=== PATIENT | female | born 1940 | race Caucasian/White ===

== ENCOUNTER 2018-02-09 10:23 | Inpatient (IN) | payer OTHER ==
[~2018-02-09] VITALS: Ht 162.5 cm; Wt 76.4 kg
--- NOTE | ~2018-02-09 | PR ---
[place], [place] PROGRESS NOTE NAME: DAVID DUMONT UNIT #: [id number] ROOM: 422 DOCTOR: JAIR FREEDMAN MD BIRTHDATE: [birth year] DOS: 02/11/2018 REASON FOR VISIT: Elevated cardiac enzymes. HISTORY OF PRESENT ILLNESS: She is alert, oriented. Denies any chest pain or shortness of breath. She appears to be tired, but no acute distress. Denies any PND, orthopnea. Her family is at bedside. REVIEW OF SYSTEMS: Review of the 8 systems negative except as mentioned above. RHYTHM STRIPS: The patient in sinus rhythm. PHYSICAL EXAMINATION: VITAL SIGNS: Blood pressure 113/58, pulse 68, respiratory rate was 16. GENERAL: Alert, comfortable, in no acute distress. HEENT: Pupils are round and equal. No jaundice. Tongue was moist and pharynx clear. NECK: Supple, no distended neck veins, no carotid bruit. CHEST: Symmetrical, nontender. LUNGS: A few scattered rhonchi, but good air entry bilaterally. HEART: Regular rhythm, no S3. Grade 1/6 systolic murmur. ABDOMEN: Benign, nontender. Bowel sounds normal. EXTREMITIES: Showed trace edema. Distal pulses palpable. SKIN: Warm and dry. No cyanosis, no clubbing. RECTAL: Deferred. GENITOURINARY: Deferred. Her medications, allergies and labs reviewed. IMPRESSION: 1. Elevated troponin, possible recent non-ST elevation myocardial infarction. The patient was chest pain free. 2. Urinary tract infection. 3. Chronic obstructive pulmonary disease. 4. Supraventricular ectopy. 5. IVP DYE allergy. RECOMMENDATIONS: 1. She is stable from the cardiac standpoint. Her blood pressure and heart rates are stable. 2. I discussed with her daughter who is at bedside and she wishes conservative medical therapy only, for her mom. 3. Cardiology to sign off and please call us back if needed. [place], [place] PROGRESS NOTE NAME: DAVID DUMONT UNIT #: [id number] ROOM: 422 DOCTOR: JAIR FREEDMAN MD BIRTHDATE: [birth year] JAIR FREEDMAN MD CM:DANILO [id number] JAIR FREEDMAN MD 02/11/18 2329 interface
--- NOTE | ~2018-02-09 | PR ---
[place], [place] PROGRESS NOTE NAME: DAVID DUMONT [facility] #: [id number] UNIT #: [id number] ROOM: 422 DOCTOR: EVELIO PALOMARES MD BIRTHDATE: [birth year] DOS: 02/10/2018 CARDIOLOGY PROGRESS NOTE SUBJECTIVE: The patient was seen today at her bedside on 02/10/2018 with her daughter in attendance. She is a 77-year-old woman who was told that she had a silent heart attack in the past. She denies ever having been admitted to the hospital for a heart attack, however. She presented to the hospital on this occasion because of difficulty passing her urine and an apparent urinary tract infection. Her white count was low at 4400, but her urinalysis was consistent with a urinary tract infection. Blood chemistries did show an elevation in troponin, which began at 0.069, then siri to 1.500, followed by 1.600. Throughout this, the patient has had no chest pain, palpitations or dyspnea. She and her family are anxious to leave the hospital as soon as it is safe to do so and I have requested that no aggressive or invasive diagnostic or therapeutic options be explored. She did have an echocardiogram today that I reviewed. It was a technically challenging study, but overall left ventricular systolic function appeared normal. The ejection fraction was 55% with stage 1 diastolic relaxation abnormalities. No significant valve abnormalities were seen. PHYSICAL EXAMINATION: VITAL SIGNS: Today, her pulse is 75 and regular, blood pressure is 109/58. She is afebrile. NECK: Supple. She has no jugular distention. Carotids are full. LUNGS: Respirations are unlabored. Her chest is clear. HEART: Has a regular rhythm with an S4 gallop, but no S3. ABDOMEN: Soft and normally active. EXTREMITIES: Showed no edema. LABORATORY DATA: Hemoglobin is 11.2 with hematocrit of 35.6. There are 3600 white cells and 148,000 platelets present. Sodium is 139, potassium 3.8, BUN 13, creatinine 0.88. IMPRESSION: 1. Non-ST elevation myocardial infarction. The pattern of troponin elevation and the degree of troponin elevation are consistent with at least a small amount of myocardial injury. Echocardiography; however, shows normal wall motion and overall systolic function. 2. Urinary tract infection with urinary retention. 3. Leukopenia. 4. History of chronic obstructive pulmonary disease. 5. Remote history of "silent" myocardial infarction. 6. History of breast cancer status post right mastectomy. PLAN: The patient and her family request a conservative approach to her management. We will continue aspirin and statins and increase her beta christian therapy. No other workup is planned at this time. [place], [place] PROGRESS NOTE NAME: DAVID DUMONT UNIT #: [id number] ROOM: 422 DOCTOR: EVELIO PALOMARES MD BIRTHDATE: [birth year] I thank the hospitalist physicians for asking our advice regarding her care. EVELIO PALOMARES MD CM:PNTRANS [phone] EVELIO PALOMARES MD 02/11/18 1910 interface
--- NOTE | ~2018-02-09 | CON ---
[place], [place] REPORT OF CONSULTATION NAME: DAVID DUMONT [facility] #: [id number] UNIT #: [id number] ROOM: 422 DOCTOR: JAIR FREEDMAN MD BIRTHDATE: [birth year] DOS: 02/09/2018 CARDIOLOGY CONSULTATION REASON FOR CONSULTATION: Elevated cardiac enzymes. CLINICAL HISTORY: The patient is a 77-year-old patient with no prior history of questionable myocardial infarction, COPD, was brought to the Emergency Room due to her urinary complaints. The patient unable to urinate as well as noted to have some decreased urinary output, hence, she was brought to the Emergency Room. Hence she was found to have slightly elevated cardiac troponin, hence Cardiology was consulted. The patient denied any chest pains, shortness of breath. No fever and chills. No nausea, vomiting, diarrhea. No headaches. No hematuria or dysuria. The medical records indicate that the patient had some myocardial infarction in the past, but per her family, daughter, this was probably 40-50 years ago. REVIEW OF SYSTEMS: The patient denies any chest pain or shortness of breath, no palpitation, no dizziness, no PND or orthopnea, no neurologic symptoms, no musculoskeletal symptoms, no symptoms, no bladder symptoms except inability to urinate. The review of the 10 systems is negative except as mentioned in the history of present complaint. PAST MEDICAL HISTORY: 1. Questionable myocardial infarction 40-50 years ago per family. 2. Chronic obstructive pulmonary disease. 3. Hypothyroidism. 4. History of breast cancer. SURGICAL HISTORY: History of right mastectomy, cholecystectomy, hysterectomy, and thyroidectomy. FAMILY HISTORY: Father diseased, cause is unknown. Mother , cause is unknown. ALLERGIES: THE PATIENT HAS MULTIPLE ALLERGIES INCLUDING IVP DYE, PENICILLIN, SULFA, ASPIRIN, IODINE, AND LINDANE. HOME MEDICATIONS: Reviewed. PHYSICAL EXAMINATION: VITAL SIGNS: Blood pressure 146/70, pulse 90, respiratory 18, weight 76.4 kilos, BMI 28.9. GENERAL: Alert, comfortable, in no acute distress. HEENT: Pupils round, equal. No jaundice. Tongue was moist and pharynx clear. NECK: Supple, no distended neck veins, no carotid bruit. CHEST: Symmetrical, nontender. LUNGS: Few scattered rhonchi. HEART: Slightly irregular. No S3. Grade 1/6 systolic murmur. ABDOMEN: Benign, nontender. Bowel sounds normal. [place], [place] REPORT OF CONSULTATION NAME: DAVID DUMONT UNIT #: [id number] ROOM: 422 DOCTOR: TANO CHACON,JAIR BIRTHDATE: [birth year] EXTREMITIES: Showed no edema. Distal pulses are palpable. SKIN: Warm and dry. No cyanosis, no clubbing. RECTAL: Deferred. GENITOURINARY: Deferred. NEUROLOGIC: The patient is alert, oriented. No focal neurologic deficit. REVIEW OF THE DIAGNOSTIC TESTS: EKG sinus rhythm with nonspecific ST-T changes. Rhythm strip showed supraventricular ectopy, also some multifocal atrial tachycardia with a rate slow 100. Chest x-ray unremarkable. Cardiac troponin was 0.069 and 1.5. Hemoglobin 11.8. Creatinine is 149,000. Potassium 3.6, BUN 18, creatinine 0.96. IMPRESSION: 1. Borderline elevated cardiac troponin, no chest pains, history of non-ST elevation myocardial infarction. 2. Urinary retention. 3. Supraventricular ectopy as well as multifocal atrial tachycardia with heart rate is low 100s. The patient is asymptomatic. 4. Chronic obstructive pulmonary disease. 5. Hypothyroidism. 6. Questionable history of myocardial infarction long time ago. 7. IVP DYE ALLERGY. RECOMMENDATIONS: 1. The patient appears to be asymptomatic. 2. Continue to cycle her cardiac enzymes. 3. Continue her aspirin and start low dose beta blockers and statins, continue her Lovenox. 4. Check 2D echo with LV function and valvular function. 5. Further cardiac workup discussed with the patient as well as her family member, her daughter, who is at bedside. The family is requesting just conservative medical therapy at this time. JAIR FREEDMAN MD CM:CONSTR:REPORT OF CONSULTATION 2323 02/10/18 0718 interface
[~2018-02-09 10:23] MED LIST: CIPROFLOXACIN500 MG PO; CLARITIN10 MG PO; EVISTA60 MG PO; KLOTRIX10 MEQ PO; NYSTATIN OINTME30 GM T; OYSTER CALCIUM1 TA2 PO; PLAVIX75 MG PO; SYNTHROID,LEVO75 MCG PO; VENTOLIN H0.09 MG/AC INH
[2018-02-09 10:24] VITALS: BP 166/78
[2018-02-09 11:14] LABS: BILIRUBIN NEGATIVE (NEGATIVE); BLOOD 3+ (NEGATIVE); CLARITY CLOUDY (CLEAR); COLOR YELLOW (YELLOW); GLUCOSE NEGATIVE (NEGATIVE); KETONE NEGATIVE (NEGATIVE); LEUKO ESTERASE 3+ (NEGATIVE); NITRITE NEGATIVE (NEGATIVE); PH 5.5 (5.0-9.0); UROBILINOGEN 0.2 E.U./dl (0.2-1.0)
[2018-02-09 11:22] LABS: BASO % 0.5 % (0.0-1.0); EOS # 0.1 10*3/uL (0.0-0.4); EOS % 3.2 % (1.0-4.0); HEMATOCRIT 37.4 % (37.0-47.0); HEMOGLOBIN 11.8 g/dl (12.0-16.0); LYMPH # 0.8 10*3/uL (1.3-4.4); LYMPH % 17.7 % (27.0-41.0); MEAN CORPUSCULAR HGB 28.7 pg (27.0-31.0); MEAN CORPUSCULAR HGB CONC 31.6 g/dl (33.0-37.0); MEAN PLATELET VOLUME 9.7 fl (9.6-12.3); MONO # 0.4 10*3/uL (0.1-1.0); MONO % 9.9 % (3.0-9.0); NEUT % 68.5 % (47.0-73.0); PLATELET COUNT AUTOMATED 149 10*3/uL (130-400); RED BLOOD COUNT 4.11 10*6/uL (4.10-5.10); RED CELL DISTRI WIDTH 14.7 % (0-14.5); WHITE BLOOD COUNT 4.4 10*3/uL (4.8-10.8)
[2018-02-09 11:23] LABS: RBC TNTC rbc/hpf (0-2); WBC TNTC wbc/hpf (0-5)
[2018-02-09 11:32] LABS: ACT PARTIAL THROMBO TIME 24.3 SECONDS (20.8-31.5)
[2018-02-09 11:37] VITALS: BP 142/72
[2018-02-09 11:39] LABS: ALBUMIN 3.2 gm/dl (3.1-4.5); ALKALINE PHOSPHATASE 54 U/L (45-117); BUN 18 mg/dl (7-24); CHLORIDE 107 mmol/L (98-107); CREATININE 0.96 mg/dL (0.55-1.02); POTASSIUM 3.6 mmol/L (3.5-5.1); SGOT/AST 24 IU/L (3-35); SGPT/ALT 14 U/L (12-78); SODIUM 138 mmol/L (136-145); TOTAL PROTEIN 8.6 gm/dL (6.4-8.2)
[2018-02-09 11:43] LABS: TROPONIN I 0.069 ng/ml (<0.045)
[2018-02-09 12:27] VITALS: BP 138/78
[2018-02-09] MEDS ORDERED: ASPIRIN CHEWABL81 MG PO (12:47)
[2018-02-09] MEDS ORDERED: FISH OIL 1,0001 EAC4 PO (12:49)
[2018-02-09] MEDS ORDERED: B12100 MC1 PO (12:49)
[2018-02-09 13:20] VITALS: BP 146/76
[2018-02-09 16:00] VITALS: BP 130/75
[2018-02-09 20:00] VITALS: BP 127/65
[2018-02-10] VITALS: BP 130/67
[2018-02-10 07:00] LABS: BASO % 0.6 % (0.0-1.0); EOS # 0.1 10*3/uL (0.0-0.4); EOS % 3.3 % (1.0-4.0); HEMATOCRIT 35.6 % (37.0-47.0); HEMOGLOBIN 11.2 g/dl (12.0-16.0); LYMPH # 1.1 10*3/uL (1.3-4.4); LYMPH % 29.5 % (27.0-41.0); MEAN CELL VOLUME 90.4 fl (81.0-99.0); MEAN CORPUSCULAR HGB 28.4 pg (27.0-31.0); MEAN CORPUSCULAR HGB CONC 31.5 g/dl (33.0-37.0); MEAN PLATELET VOLUME 10.3 fl (9.6-12.3); MONO # 0.5 10*3/uL (0.1-1.0); MONO % 14.3 % (3.0-9.0); NEUT # 1.9 10*3/uL (2.3-7.9); PLATELET COUNT AUTOMATED 148 10*3/uL (130-400); RED BLOOD COUNT 3.94 10*6/uL (4.10-5.10); RED CELL DISTRI WIDTH 14.6 % (0-14.5); WHITE BLOOD COUNT 3.6 10*3/uL (4.8-10.8)
[2018-02-10 07:34] LABS: ALBUMIN 2.7 gm/dl (3.1-4.5); BUN 13 mg/dl (7-24); CHLORIDE 108 mmol/L (98-107); CHOLESTEROL 135 mg/dL (<200); CREATININE 0.88 mg/dL (0.55-1.02); PHOSPHOROUS 2.9 mg/dL (2.5-4.9); POTASSIUM 3.8 mmol/L (3.5-5.1); SGOT/AST 23 IU/L (3-35); SGPT/ALT 13 U/L (12-78); SODIUM 139 mmol/L (136-145); TRIGLYCERIDES 111 mg/dl (<150); VLDL CHOLESTEROL 22 mg/dL (6-40)
[2018-02-10 07:43] LABS: ALKALINE PHOSPHATASE 47 U/L (45-117); HDL CHOLESTEROL 30 mg/dl (40-60); LDL CHOLESTEROL 83 mg/dL (9-159); TOTAL PROTEIN 7.7 gm/dL (6.4-8.2)
[2018-02-10 07:52] LABS: VITAMIN D, 25-HYDROXY 18.1 ng/mL (30-100)
[2018-02-10 08:00] VITALS: BP 118/72
[2018-02-10 12:00] VITALS: BP 127/70
[2018-02-10 16:00] VITALS: BP 109/58
[2018-02-10 20:06] VITALS: BP 120/66
[2018-02-11] VITALS: BP 136/88
[2018-02-11 06:23] LABS: BUN 14 mg/dl (7-24); CHLORIDE 110 mmol/L (98-107); CREATININE 0.85 mg/dL (0.55-1.02); POTASSIUM 3.6 mmol/L (3.5-5.1); SODIUM 140 mmol/L (136-145)
[2018-02-11 06:26] LABS: TROPONIN I 0.256 ng/ml (<0.045)
[2018-02-11 07:27] LABS: BASO % 0.5 % (0.0-1.0); EOS # 0.1 10*3/uL (0.0-0.4); EOS % 3.6 % (1.0-4.0); HEMATOCRIT 36.1 % (37.0-47.0); HEMOGLOBIN 11.3 g/dl (12.0-16.0); LYMPH # 1.2 10*3/uL (1.3-4.4); LYMPH % 30.5 % (27.0-41.0); MEAN CELL VOLUME 90.7 fl (81.0-99.0); MEAN CORPUSCULAR HGB 28.4 pg (27.0-31.0); MEAN CORPUSCULAR HGB CONC 31.3 g/dl (33.0-37.0); MEAN PLATELET VOLUME 11.2 fl (9.6-12.3); MONO # 0.6 10*3/uL (0.1-1.0); MONO % 14.8 % (3.0-9.0); NEUT # 1.9 10*3/uL (2.3-7.9); NEUT % 50.3 % (47.0-73.0); PLATELET COUNT AUTOMATED 142 10*3/uL (130-400); RED BLOOD COUNT 3.98 10*6/uL (4.10-5.10); RED CELL DISTRI WIDTH 14.6 % (0-14.5); WHITE BLOOD COUNT 3.8 10*3/uL (4.8-10.8)
[2018-02-11 08:00] VITALS: BP 113/53
[2018-02-11 12:00] VITALS: BP 111/54
[2018-02-11 16:00] VITALS: BP 128/61
[2018-02-11 20:00] VITALS: BP 129/66
[2018-02-12] VITALS: BP 110/66
[2018-02-12 07:23] LABS: BASO % 0.9 % (0.0-1.0); EOS # 0.2 10*3/uL (0.0-0.4); EOS % 5.7 % (1.0-4.0); HEMATOCRIT 36.7 % (37.0-47.0); HEMOGLOBIN 11.4 g/dl (12.0-16.0); LYMPH # 1.1 10*3/uL (1.3-4.4); LYMPH % 33.7 % (27.0-41.0); MEAN CELL VOLUME 91.1 fl (81.0-99.0); MEAN CORPUSCULAR HGB 28.3 pg (27.0-31.0); MEAN CORPUSCULAR HGB CONC 31.1 g/dl (33.0-37.0); MEAN PLATELET VOLUME 10.4 fl (9.6-12.3); MONO # 0.6 10*3/uL (0.1-1.0); MONO % 16.6 % (3.0-9.0); NEUT # 1.4 10*3/uL (2.3-7.9); NEUT % 42.8 % (47.0-73.0); PLATELET COUNT AUTOMATED 124 10*3/uL (130-400); RED BLOOD COUNT 4.03 10*6/uL (4.10-5.10); RED CELL DISTRI WIDTH 14.8 % (0-14.5); WHITE BLOOD COUNT 3.3 10*3/uL (4.8-10.8)
[2018-02-12 07:26] LABS: BUN 15 mg/dl (7-24); CHLORIDE 109 mmol/L (98-107); CREATININE 0.94 mg/dL (0.55-1.02); SODIUM 140 mmol/L (136-145)
[2018-02-12 07:27] LABS: POTASSIUM 4.5 mmol/L (3.5-5.1)
[2018-02-12 08:00] VITALS: BP 131/62
[2018-02-12 12:00] VITALS: BP 123/55
[2018-02-12 16:00] VITALS: BP 122/51
[2018-02-12 20:00] VITALS: BP 110/50
[2018-02-13] VITALS: BP 122/50
[2018-02-13 07:15] LABS: HEMATOCRIT 34.4 % (37.0-47.0); MEAN CELL VOLUME 91.2 fl (81.0-99.0); MEAN CORPUSCULAR HGB 29.2 pg (27.0-31.0); MEAN PLATELET VOLUME 10.9 fl (9.6-12.3); NUCLEATED RED BLOOD CELL 0.1 10*3/uL (0.0-0.0); NUCLEATED RED BLOOD CELL 1.7 % (0.0-0.0); PLATELET COUNT AUTOMATED 159 10*3/uL (130-400); RED BLOOD COUNT 3.77 10*6/uL (4.10-5.10); RED CELL DISTRI WIDTH 14.9 % (0-14.5)
[2018-02-13 07:29] LABS: PLATELET SUFFICIENCY NORMAL (NORMAL); TOTAL CELLS COUNTED 100 #CELLS
[2018-02-13 07:30] VITALS: BP 132/45
[2018-02-13 08:00] VITALS: BP 132/45
[2018-02-13 08:14] LABS: BUN 15 mg/dl (7-24); CHLORIDE 108 mmol/L (98-107); CREATININE 0.86 mg/dL (0.55-1.02); POTASSIUM 4.1 mmol/L (3.5-5.1); SODIUM 141 mmol/L (136-145)
[2018-02-13] MEDS ORDERED: OMNICEF300 MG PO (09:51)
[2018-02-13] MEDS ORDERED: METOPROLOL SUCC25 M2 PO (09:55)
[2018-02-13] MEDS ORDERED: ATORVASTATIN CA40 M1 PO (09:55)
[2018-02-13] MEDS ORDERED: VITAMIN D-32000 UNIT PO (09:55)
== END 2018-02-13 12:53 | disposition home health service (06) | DRG 689 ==
LOC: ED 10:23 → EDHOLD 12:24 → 4E 12:24
PROVIDERS: Emergency Medicine; Internal Medicine; Registered Nurse
DX: N39.0 Urinary tract infection, site not specified (principal); I21.4 Non-ST elevation (NSTEMI) myocardial infarction; E46 Unspecified protein-calorie malnutrition; E87.8 Other disorders of electrolyte and fluid balance, not elsewhere classified; J44.9 Chronic obstructive pulmonary disease, unspecified; R33.8 Other retention of urine; E55.9 Vitamin D deficiency, unspecified; E03.9 Hypothyroidism, unspecified; E78.5 Hyperlipidemia, unspecified; R73.9 Hyperglycemia, unspecified; K59.00 Constipation, unspecified; I25.2 Old myocardial infarction; Z85.3 Personal history of malignant neoplasm of breast; Z90.710 Acquired absence of both cervix and uterus; Z88.0 Allergy status to penicillin; Z88.2 Allergy status to sulfonamides; Z88.8 Allergy status to other drugs, medicaments and biological substances; Z88.6 Allergy status to analgesic agent; Z91.041 Radiographic dye allergy status; Z87.440 Personal history of urinary (tract) infections; Z82.49 Family history of ischemic heart disease and other diseases of the circulatory system; Z80.9 Family history of malignant neoplasm, unspecified; Z83.3 Family history of diabetes mellitus; Z68.28 Body mass index [BMI] 28.0-28.9, adult

== ENCOUNTER 2018-08-29 14:42 | Inpatient (IN) | payer OTHER ==
[~2018-08-29] VITALS: Ht 157.4 cm; Wt 73.2 kg
--- NOTE | ~2018-08-29 | WRIGHTHP ---
[place], [place] PATIENT HISTORY AND PHYSICAL EXAM [id number] UN[facility] #: [id number] ROOM: 522 DOCTOR: REBECCA GONZALEZ DPM BIRTHDATE: [birth year] DOS: 08/31/2018 INDICATION: The patient sustained an ankle fracture approximately 2 days ago. It was classified as bimalleolar ankle fracture, possible little avulsion off the posterior malleolus, hard to tell for certain without a CT scan. Regardless, she has an unstable ankle fracture of her left side. With this in mind, she consented for surgery at [facility] today on 08/31/2018 for open reduction and internal fixation of her right ankle. She underwent noninvasive vascular studies, demonstrates she has good perfusion to right lower extremity as her age is a consideration with relative to her injury. With this in mind, she agreed to the consent. She agreed to perioperative management as well as her family saw her in the preop holding area, reviewed the surgery, reviewed the consent, reviewed the appropriate site marking, and also received the perioperative management. With this in mind, she and family members concurred, agreed with the surgery, with the consent, with the site marking and with the perioperative management. All questions were answered to her satisfaction preoperatively, understands the pros, cons, risks, benefits of surgery of her left lower extremity. REBECCA GONZALEZ DPM CM:HISPHYS:PATIENT HISTORY AND PHYSICAL EXAMINATION [phone] REBECCA GONZALEZ DPM 09/15/18 1629 interface
--- NOTE | ~2018-08-29 | WRIGHTHP ---
[place], [place] PATIENT HISTORY AND PHYSICAL EXAM [id number] UNIT #: [id number] ROOM: 522 DOCTOR: REBECCA GONZALEZ DPM BIRTHDATE: [birth year] DOS: 08/31/2018 LOWER EXTREMITY PHYSICAL EXAM: VASCULAR: She has had noninvasive vascular studies, demonstrate good perfusion to her left lower extremity. NEUROLOGICAL: She has slightly decreased epicritic sensation, partially may be due to her age and immobilization and her injury. DERMATOLOGICAL: The skin integrity is intact. There is significant amount of ecchymosis medially, laterally and plantarly of her foot and medial and laterally of her ankle secondary to trauma. MUSCULOSKELETAL: Grossly unstable ankle fracture. Orthopedic exam, bimalleolar ankle fracture, possible some slight posterior malleolar avulsion noted on the preoperative x-rays, difficult to say for sure. REBECCA GONZALEZ DPM CM:HISPHYS:PATIENT HISTORY AND PHYSICAL EXAMINATION [phone] REBECCA GONZALEZ DPM 09/15/18 1630 interface
--- NOTE | ~2018-08-29 | O ---
[place], [place] OPERATIVE NOTE NAME: [facility]ID DUMONT [id number] UNIT #: [id number] ROOM: 522 DOCTOR: REBECCA GONZALEZ DPM BIRTHDATE: [birth year] DOS: 08/31/2018 SURGEON: Rebecca Gonzalez DPM ASSISTANTS: 1. Dr Felipe Flannery, Fellow. 2. Gentry Arguello, PGY3. 3. Danny Pereira, PGY2. PREOPERATIVE DIAGNOSIS: Unstable bimalleolar ankle fracture, left. POSTOPERATIVE DIAGNOSIS: Unstable bimalleolar ankle fracture, left. PROCEDURE: Open reduction and internal fixation of left bimalleolar ankle fracture. DESCRIPTION OF PROCEDURE: The patient was seen in the preop holding area and appropriate site marking was performed. She and her family concurred with the appropriate site marking, the consent and the proposed surgery, and the postoperative course and management and perioperative management in general. She was brought to OR, placed on the OR table where anesthesia was achieved. Once the anesthesia was achieved, appropriate time-out was performed, everybody in the room concurred. At this time, a midthigh tourniquet was inflated to 300 mmHg on the left lower extremity. The left lower extremity was exsanguinated, tourniquet was inflated and a usual sterile prep was performed in her left lower extremity. PROCEDURE #1: OPEN REDUCTION AND INTERNAL FIXATION OF BIMALLEOLAR ANKLE FRACTURE: Under fluoroscopy guidance, the ankle was stressed identifying the instability and the fragments of the bimalleolar ankle fracture. At this point in time, percutaneously due to the patient's age, soft tissue, 2 temporary K-wires were put in the medial malleolus to align the mortise in good anatomic alignment. Due to the patient's severe osteopenia, we thought we thought we'd do this through a closed or percutaneous-type approach. Once this was stabilized, attention was directed to the left lateral aspect of her ankle, where incision was made over the fibula, was deepened in the same plane using sharp and blunt dissection, avoiding neurovascular structures, carried deep down to the bone. At this time, the fragments were identified. There was some pretty significant comminution and osteopenia of her fibular fracture. At this point in time, the hematoma was resected and removed. An alligator clamp was used to reduce the fracture and maintain anatomic alignment. Due to the severe osteopenia of her bone, the bones were somewhat collapsible and at the time, we temporarily fixated it with K-wire, stabilized the length and checked this under AP, lateral, and oblique x-rays. At this point in time, attempts of interfrag compression screw was performed, but could not get good purchase, and at this point in time, [id number] locking plate was inserted laterally with combination of locking and nonlocking screws and a long plate for better stability was provided and locking screws distally and nonlocking screws proximal stabilizing the area. After this was performed, a positional screw was applied through the fragment; fragment was reduced and maintaining its position. With good position, a stress [place], [place] OPERATIVE NOTE NAME: DAVID DUMONT UNIT #: [id number] ROOM: 2 DOCTOR: REBECCA GONZALEZ DPM BIRTHDATE: [birth year] test was performed and there was noted to be some destruction of the syndesmosis. There were some noted instability, and due to the patient's comminution, soft osteopenic bone and to the entire construct, being patient's age we thought it was best to assure that the syndesmosis was tight and gave it extra support and 2 transsyndesmotic four cortices screws were inserted from lateral to medial getting four cortices and the range of motion was noted to be excellent with no crepitus, grinding, good anatomical alignment was noted throughout the ankle, mortise and length of the screws, plates and the fibula. At this point of time, the irrigation was performed. Deep tissue was closed with 0 Vicryl and skin was closed with 2-0 nylon in the left lateral fibula. Next, under fluoroscopy guidance, percutaneous technique was used using a 3.5 screw with interfrag compression technique 2.5 and 3.5 to percutaneously screw the medial malleolus. This was done, the K-wire was taken out and she was noted to be in good anatomic alignment with fixation. The soft tissue look was intact. This was percutaneously done. At this point in time, the tourniquet was dropped. Good cap refill time was noted to return to left foot and leg and ankle. She was anesthetized with 30 mL of 0.5% Marcaine proximal to the surgical site. Surgical wounds were dressed with Betadine-soaked Adaptic, 4 x 4s, Adriana in a sterile compression fashion. She tolerated the procedure and anesthesia well and left the OR with vital signs stable and vascular status intact. REBECCA GONZALEZ DPM CM:OPRECORD:OPERATIVE NOTE [phone] REBECCA GONZALEZ DPM 09/29/18 0931 interface
[~2018-08-29 14:42] MED LIST changes: +ASPIRIN CHEWABL81 MG PO; +ATORVASTATIN CA40 M1 PO; +B12100 MC1 PO; +FISH OIL 1,0001 EAC4 PO; +KLOR-CON 1010 ME1 PO; -KLOTRIX10 MEQ PO; +METOPROLOL SUCC25 M2 PO; +OMNICEF300 MG PO; -OYSTER CALCIUM1 TA2 PO; +OYSTER SHELL 51 EACH PO; +VITAMIN D-32000 UNIT PO
[2018-08-29 14:58] VITALS: BP 146/83
[2018-08-29 16:15] VITALS: BP 147/45
[2018-08-29 16:38] LABS: BASO % 0.2 % (0.0-1.0); EOS # 0.1 10*3/uL (0.0-0.4); EOS % 1.5 % (1.0-4.0); HEMATOCRIT 36.5 % (37.0-47.0); HEMOGLOBIN 11.5 g/dl (12.0-16.0); LYMPH % 21.6 % (27.0-41.0); MEAN CELL VOLUME 90.1 fl (81.0-99.0); MEAN CORPUSCULAR HGB 28.4 pg (27.0-31.0); MEAN CORPUSCULAR HGB CONC 31.5 g/dl (33.0-37.0); MEAN PLATELET VOLUME 9.5 fl (9.6-12.3); MONO # 0.6 10*3/uL (0.1-1.0); MONO % 13.4 % (3.0-9.0); NEUT # 2.9 10*3/uL (2.3-7.9); NEUT % 63.1 % (47.0-73.0); PLATELET COUNT AUTOMATED 150 10*3/uL (130-400); RED BLOOD COUNT 4.05 10*6/uL (4.10-5.10); RED CELL DISTRI WIDTH 14.6 % (0-14.5); WHITE BLOOD COUNT 4.6 10*3/uL (4.8-10.8)
[2018-08-29 17:04] LABS: ALKALINE PHOSPHATASE 69 U/L (45-117); BUN 20 mg/dl (7-24); CHLORIDE 107 mmol/L (98-107); POTASSIUM 3.9 mmol/L (3.5-5.1); SGOT/AST 23 IU/L (3-35); SGPT/ALT 17 U/L (12-78); SODIUM 139 mmol/L (136-145); TOTAL PROTEIN 8.4 gm/dL (6.4-8.2)
[2018-08-29 17:08] VITALS: BP 140/51
[2018-08-29 18:00] VITALS: BP 112/60
[2018-08-29 20:00] VITALS: BP 136/62
[2018-08-29 22:32] LABS: BILIRUBIN NEGATIVE (NEGATIVE); BLOOD 2+ (NEGATIVE); CLARITY SL CLOUDY (CLEAR); COLOR YELLOW (YELLOW); GLUCOSE NEGATIVE (NEGATIVE); KETONE NEGATIVE (NEGATIVE); LEUKO ESTERASE TRACE (NEGATIVE); NITRITE NEGATIVE (NEGATIVE)
[2018-08-29 23:11] LABS: RBC 31-40 rbc/hpf (0-2); WBC 21-30 wbc/hpf (0-5)
[2018-08-29 23:12] LABS: BACTERIA 1+
[2018-08-30] VITALS: BP 139/61
[2018-08-30 06:52] LABS: BASO % 0.2 % (0.0-1.0); EOS # 0.1 10*3/uL (0.0-0.4); EOS % 1.5 % (1.0-4.0); HEMATOCRIT 32.6 % (37.0-47.0); HEMOGLOBIN 10.9 g/dl (12.0-16.0); LYMPH # 0.9 10*3/uL (1.3-4.4); LYMPH % 22.4 % (27.0-41.0); MEAN CELL VOLUME 87.6 fl (81.0-99.0); MEAN CORPUSCULAR HGB 29.3 pg (27.0-31.0); MEAN CORPUSCULAR HGB CONC 33.4 g/dl (33.0-37.0); MEAN PLATELET VOLUME 9.9 fl (9.6-12.3); MONO # 0.7 10*3/uL (0.1-1.0); NEUT # 2.4 10*3/uL (2.3-7.9); NEUT % 58.7 % (47.0-73.0); PLATELET COUNT AUTOMATED 158 10*3/uL (130-400); RED BLOOD COUNT 3.72 10*6/uL (4.10-5.10); RED CELL DISTRI WIDTH 14.6 % (0-14.5); WHITE BLOOD COUNT 4.1 10*3/uL (4.8-10.8)
[2018-08-30 07:02] LABS: BUN 16 mg/dl (7-24); CHLORIDE 110 mmol/L (98-107); CREATININE 0.82 mg/dL (0.55-1.02); PHOSPHOROUS 3.1 mg/dL (2.5-4.9); POTASSIUM 3.5 mmol/L (3.5-5.1); SODIUM 140 mmol/L (136-145)
[2018-08-30 08:00] VITALS: BP 103/50
[2018-08-30] MEDS ORDERED: METOPROLOL SUCC25 M2 PO (10:14)
[2018-08-30 12:00] VITALS: BP 105/44
[2018-08-30 16:00] VITALS: BP 129/54
[2018-08-30 20:00] VITALS: BP 121/50
[2018-08-31] VITALS (9 sets, daily range): BP systolic 117–141; BP diastolic 53–73
[2018-09-01] VITALS: BP 137/75
[2018-09-01 06:45] LABS: HEMATOCRIT 31.1 % (37.0-47.0); HEMOGLOBIN 9.7 g/dl (12.0-16.0); LYMPH # 0.8 10*3/uL (1.3-4.4); LYMPH % 12.9 % (27.0-41.0); MEAN CELL VOLUME 88.9 fl (81.0-99.0); MEAN CORPUSCULAR HGB 27.7 pg (27.0-31.0); MEAN CORPUSCULAR HGB CONC 31.2 g/dl (33.0-37.0); MEAN PLATELET VOLUME 10.4 fl (9.6-12.3); MONO # 0.8 10*3/uL (0.1-1.0); NEUT # 4.9 10*3/uL (2.3-7.9); NEUT % 74.3 % (47.0-73.0); PLATELET COUNT AUTOMATED 181 10*3/uL (130-400); RED CELL DISTRI WIDTH 14.6 % (0-14.5); WHITE BLOOD COUNT 6.5 10*3/uL (4.8-10.8)
[2018-09-01 06:51] LABS: CREATININE 0.81 mg/dL (0.55-1.02)
[2018-09-01 08:00] VITALS: BP 135/65
[2018-09-01 08:29] VITALS: BP 135/65
[2018-09-01 11:28] VITALS: BP 131/63
[2018-09-01 16:00] VITALS: BP 106/46
[2018-09-01 20:00] VITALS: BP 114/62; BP 139/84
[2018-09-02] VITALS: BP 127/51
[2018-09-02 06:31] LABS: BASO % 0.3 % (0.0-1.0); EOS # 0.1 10*3/uL (0.0-0.4); EOS % 1.3 % (1.0-4.0); LYMPH # 1.5 10*3/uL (1.3-4.4); MEAN CELL VOLUME 88.3 fl (81.0-99.0); MEAN CORPUSCULAR HGB 28.4 pg (27.0-31.0); MEAN CORPUSCULAR HGB CONC 32.1 g/dl (33.0-37.0); MEAN PLATELET VOLUME 9.9 fl (9.6-12.3); MONO # 0.7 10*3/uL (0.1-1.0); MONO % 11.4 % (3.0-9.0); NEUT # 3.7 10*3/uL (2.3-7.9); NEUT % 61.7 % (47.0-73.0); PLATELET COUNT AUTOMATED 187 10*3/uL (130-400); RED BLOOD COUNT 3.17 10*6/uL (4.10-5.10); RED CELL DISTRI WIDTH 14.8 % (0-14.5); WHITE BLOOD COUNT 6.1 10*3/uL (4.8-10.8)
[2018-09-02 08:38] VITALS: BP 117/72
[2018-09-02 11:29] VITALS: BP 105/42
[2018-09-02] MEDS ORDERED: TRAMADOL HCL50 MG PO (13:55)
[2018-09-02] MEDS ORDERED: HYDROCODONE-AC1 EAC1 PO (13:55)
[2018-11-01] MEDS ORDERED: CALCIUM + VITA1 EAC2 PO (15:00)
[2018-11-01] MEDS ORDERED: MILK OF MA400 MG/5 M PO (15:03)
[2018-11-01] MEDS ORDERED: NYSTOP60 GM T (15:05)
[2018-11-01] MEDS ORDERED: TYLENOL325 M3 PO (15:06)
[2018-11-03] MEDS ORDERED: XARELTO10 MG PO (14:00)
[2018-11-03] MEDS ORDERED: DOXYCYCLINE100 MG PO (14:01)
== END 2018-09-02 15:55 | disposition other institution (70) | DRG 493 ==
LOC: ED 14:42 → 5E 17:21 → EDHOLD 17:21 → 5E 17:31
PROVIDERS: Nurse Practitioner Family; Registered Nurse; Student in an Organized Health Care Education/Training Program; ADMIT Internal Medicine
PROC: 0QSK04Z Reposition Left Fibula with Internal Fixation Device, Open Approach (ICD-10-PCS; principal; 2018-08-31)
PROC: 0QSH04Z Reposition Left Tibia with Internal Fixation Device, Open Approach (ICD-10-PCS; 2018-08-31)
DX: S82.842A Displaced bimalleolar fracture of left lower leg, initial encounter for closed fracture (principal); E44.0 Moderate protein-calorie malnutrition; J44.9 Chronic obstructive pulmonary disease, unspecified; E78.5 Hyperlipidemia, unspecified; E87.8 Other disorders of electrolyte and fluid balance, not elsewhere classified; K21.9 Gastro-esophageal reflux disease without esophagitis; R73.9 Hyperglycemia, unspecified; E89.0 Postprocedural hypothyroidism; Z66 Do not resuscitate; Z51.5 Encounter for palliative care; E83.51 Hypocalcemia; W18.30XA Fall on same level, unspecified, initial encounter; L89.892 Pressure ulcer of other site, stage 2; Y92.89 Other specified places as the place of occurrence of the external cause; Y93.89 Activity, other specified; Y99.8 Other external cause status; Z86.73 Personal history of transient ischemic attack (TIA), and cerebral infarction without residual deficits; Z90.49 Acquired absence of other specified parts of digestive tract; Z85.3 Personal history of malignant neoplasm of breast; Z88.0 Allergy status to penicillin; Z88.6 Allergy status to analgesic agent; Z91.041 Radiographic dye allergy status; Z90.11 Acquired absence of right breast and nipple; Z88.2 Allergy status to sulfonamides; Z91.048 Other nonmedicinal substance allergy status; Z90.710 Acquired absence of both cervix and uterus; Z82.49 Family history of ischemic heart disease and other diseases of the circulatory system; Z83.3 Family history of diabetes mellitus; Z80.9 Family history of malignant neoplasm, unspecified; Z91.81 History of falling; I25.2 Old myocardial infarction; Z87.440 Personal history of urinary (tract) infections; Z79.82 Long term (current) use of aspirin; Z79.899 Other long term (current) drug therapy; Z68.30 Body mass index [BMI] 30.0-30.9, adult

== ENCOUNTER 2018-09-04 20:47 | Inpatient (IN) | payer OTHER ==
[~2018-09-04] VITALS: Ht 157.4 cm; Wt 74.8 kg
[2018-09-04 20:47] VITALS: BP 114/56
[~2018-09-04 20:47] MED LIST changes: +HYDROCODONE-AC1 EAC1 PO; +TRAMADOL HCL50 MG PO
[2018-09-04 21:20] LABS: BILIRUBIN 1+ (NEGATIVE); BLOOD 2+ (NEGATIVE); CLARITY SL CLOUDY (CLEAR); COLOR YELLOW (YELLOW); GLUCOSE NEGATIVE (NEGATIVE); KETONE NEGATIVE (NEGATIVE); LEUKO ESTERASE TRACE (NEGATIVE); NITRITE POSITIVE (NEGATIVE); PH 5.5 (5.0-9.0); SPECIFIC GRAVITY >= 1.030 (1.005-1.030)
[2018-09-04 21:35] LABS: BACTERIA 2+; MUCOUS 1+; WBC 31-40 wbc/hpf (0-5)
[2018-09-04 21:56] LABS: BASO % 0.2 % (0.0-1.0); HEMATOCRIT 33.1 % (37.0-47.0); HEMOGLOBIN 10.6 g/dl (12.0-16.0); LYMPH # 0.7 10*3/uL (1.3-4.4); LYMPH % 11.1 % (27.0-41.0); MEAN CELL VOLUME 87.6 fl (81.0-99.0); MEAN PLATELET VOLUME 9.6 fl (9.6-12.3); MONO # 0.8 10*3/uL (0.1-1.0); MONO % 11.6 % (3.0-9.0); NEUT % 76.8 % (47.0-73.0); PLATELET COUNT AUTOMATED 229 10*3/uL (130-400); RED BLOOD COUNT 3.78 10*6/uL (4.10-5.10); RED CELL DISTRI WIDTH 15.2 % (0-14.5); WHITE BLOOD COUNT 6.5 10*3/uL (4.8-10.8)
[2018-09-04 22:12] LABS: ALBUMIN 2.4 gm/dl (3.1-4.5); ALKALINE PHOSPHATASE 63 U/L (45-117); BUN 29 mg/dl (7-24); CHLORIDE 109 mmol/L (98-107); CREATININE 1.02 mg/dL (0.55-1.02); LIPASE 47 U/L (73-393); POTASSIUM 3.5 mmol/L (3.5-5.1); SGOT/AST 28 IU/L (3-35); SGPT/ALT 18 U/L (12-78); SODIUM 140 mmol/L (136-145)
[2018-09-04 22:23] VITALS: BP 105/55
--- NOTE | 2018-09-04 22:25 | NUR ---
PATIENT IN BED WITH EYES CLOSED. FAMILY AT BEDSIDE... RESP EASY AND NONLABORED. RN WILL CONT TO MONITOR
[2018-09-05] VITALS: BP 108/54
--- NOTE | 2018-09-05 00:35 | NUR ---
THERE WAS SOME BRUISING TO THE LEFT HIP. NO OPEN WOUNDS
[2018-09-05 00:45] VITALS: BP 108/54
--- NOTE | 2018-09-05 00:45 | NUR ---
A 78, admitted to , under the services of JANAK Mirza DO with a diagnosis of UTI. Chief complaint is INFLUENZA SYMPTOMS. Patient arrived via stretcher from ER. Monitor applied. Initial assessment completed. Vital signs taken and recorded. JANAK MIRZA DO notified of admission to the unit. Orders received. See assessment for past medical history, medications and allergies. Patient and/or family oriented to unit. [facility] visitation policy reviewed. Clothing/patient valuable form completed. ORLANDO LIAO
--- NOTE | 2018-09-05 01:38 | NUR ---
DR CONNELL CALLED AND MADE AWARE THAT HOME MEDS ARE UP TO DATE. ALSO THAT PATIENT HAS SKIN TEAR TO LEFT LOWER BACK AND BRUISING TO LEFT HIP FROM A PREVIOUS FA;;.
[2018-09-05 06:22] LABS: BASO % 0.2 % (0.0-1.0); EOS % 0.5 % (1.0-4.0); HEMOGLOBIN 9.1 g/dl (12.0-16.0); LYMPH # 0.7 10*3/uL (1.3-4.4); LYMPH % 16.8 % (27.0-41.0); MEAN CORPUSCULAR HGB 27.9 pg (27.0-31.0); MEAN CORPUSCULAR HGB CONC 31.4 g/dl (33.0-37.0); MEAN PLATELET VOLUME 9.4 fl (9.6-12.3); MONO # 0.6 10*3/uL (0.1-1.0); MONO % 13.5 % (3.0-9.0); NEUT # 2.9 10*3/uL (2.3-7.9); NEUT % 68.8 % (47.0-73.0); PLATELET COUNT AUTOMATED 200 10*3/uL (130-400); RED BLOOD COUNT 3.26 10*6/uL (4.10-5.10); RED CELL DISTRI WIDTH 15.3 % (0-14.5); WHITE BLOOD COUNT 4.2 10*3/uL (4.8-10.8)
[2018-09-05 06:35] LABS: ALBUMIN 2.1 gm/dl (3.1-4.5); BUN 32 mg/dl (7-24); CHLORIDE 112 mmol/L (98-107); CREATININE 0.78 mg/dL (0.55-1.02); PHOSPHOROUS 2.3 mg/dL (2.5-4.9); POTASSIUM 3.5 mmol/L (3.5-5.1); SGOT/AST 20 IU/L (3-35); SGPT/ALT 14 U/L (12-78); SODIUM 143 mmol/L (136-145)
[2018-09-05 06:37] LABS: ALKALINE PHOSPHATASE 51 U/L (45-117); TOTAL PROTEIN 7.1 gm/dL (6.4-8.2)
[2018-09-05 08:00] VITALS: BP 107/54
--- NOTE | 2018-09-05 10:45 | NUR ---
PATIENT RESTING QUIETLY IN BED. AROUSES EASILY. RESPIRATIONS EASY, REGULAR. DAUGHTER AT BEDSIDE. PT ACCEPTED PO MEDS WITHOUT ANY DIFFICULTY. WILL CONTINUE TO MONITOR. BULKY CAST TO LLE. CALL LIGHT WITHIN REACH.
--- NOTE | 2018-09-05 11:29 | NUR ---
PT MEDICATED WITH PO TYLENOL PER PRN ORDER FOR C/O LEFT LEG PAIN. WILL MONITOR EFFECTIVENESS.
[2018-09-05 12:00] VITALS: BP 107/43
--- NOTE | 2018-09-05 14:00 | NUR ---
NORCO GIVEN PER PRN ORDER FOR C/O LEFT LEG PAIN. DR.A HERNANDEZ AWARE OF RECENT TYLENOL DOSAGE. OKAY TO ADMINISTER NORCO AT THIS TIME.
--- NOTE | 2018-09-05 15:30 | NUR ---
ROSETTE EFFECTIVE PER PT.
--- NOTE | 2018-09-05 15:49 | NUR ---
PHYSICAL THERAPY PT EVAL COMPLETED TODAY ON LEVEL 5: FULL EVALUATION TO FOLLOW: RECOMMEND PT WHILE HERE TO ADDRESS DECREASED STRENGTH AND FUNCTIONAL MOBILITY. PT EVAL IS MODERATE COMPLEXITY BASED ON CHART REVIEW, TEST RESULTS AND EVALUATION: 10790. D.C RECOMMENDATIONS ARE TO RETURN TO SNF AT [facility] ON D/C TO RESUME THERAPY TO ALLOW EVENTUAL RETURN HOME WITH DAUGHTER. THANK YOU FOR REFERRAL RAMIRO ROBERTSON PT
[2018-09-05 16:00] VITALS: BP 102/53
--- NOTE | 2018-09-05 17:51 | NUR ---
DR.A HERNANDEZ NOTIFIED REGARDING POSITIVE BLOOD CULTURE. NEW ORDERS RECEIVED.
[2018-09-05 20:00] VITALS: BP 140/60
--- NOTE | 2018-09-05 20:00 | NUR ---
PT SLEEPING IN BED, AWAKENS EASILY. RESP-EASY AND REGULAR. LEFT FOOT UP ON PILLOW. DU HOSE TO RIGHT LEG. NONPROD MOIST COUGH NOTED. CALL LIGHT IN REACH. BED ALARM ON. SEE SHIFT ASSESSMENT.
--- NOTE | 2018-09-05 22:00 | NUR ---
RESTING IN BED TOLERATING IV ANTIBIOTICS WITH NO PROBLEM. NO C/O AT THIS TIME. CALL LIGHT IN REACH. BED ALARM ON.
[2018-09-06] VITALS: BP 136/71
--- NOTE | 2018-09-06 00:10 | NUR ---
PT SLEEPING IN BED, AWAKENS EASILY. RESP-EASY AND REGULAR. IVF INFUSING WITH NO PROBLEM. NO C/O AT THIS TIME. CALL LIGHT IN REACH. SEE SHIFT ASSESSMENT.
--- NOTE | 2018-09-06 04:00 | NUR ---
PT SLEEPING IN BED. RESP-EASY AND REGULAR. IVF INFUSING WITH NO PROBLEM. CALL LIGHT IN REACH. BED ALARM ON.
--- NOTE | 2018-09-06 06:00 | NUR ---
TOLERATED ROUTINE MED WITH NO PROBLEM. CALL LIGHT IN REACH. NO C/O AT THIS TIME. BED ALARM ON.
[2018-09-06 08:00] VITALS: BP 130/74
--- NOTE | 2018-09-06 09:37 | NUR ---
Patient comes in from the rehab suites; Ok to return but requires PT/OT and Precert.
--- NOTE | 2018-09-06 10:56 | NUR ---
PT WAS AT [facility]HAB SU[facility] FOR REHAB AFTER BROKEN ANKLE AND SURGERY. WILL REQUIRE PRECERT TO RETURN. WILL CONTINUE TO FOLLOW.
[2018-09-06 12:00] VITALS: BP 120/62
--- NOTE | 2018-09-06 14:02 | NUR ---
PATIENTS PHILIP REMOVED FROM RETIREMENT PER DR. THORPE.
--- NOTE | 2018-09-06 14:31 | NUR ---
DAVID DUMONT [id number] Please refer to the physician's history and physical for past medical history, comorbid conditions, and allergies. Diagnosis: UTI Willie Score: 14,MODERATE RISK WOUND DESCRIPTIONS: ASSESSED PATIENT'S LEFT LOWER BACK. RED BLANCHABLE 0.5cm X 1.8cm X <0.1cm AREA NOTED. PATIENT STATES SHE THINKS SHE SCRAPPED THE AREA APPROXIMATELY 1 WEEK AGO. NO DRAINAGE NOTED. PATIENT DENIED PAIN AT TIME OF ASSESSMENT. PATIENT'S BUTTOCKS RED AND BLANCHABALE AT TIME OF ASSESSMENT. Surface the patient is resting on: Position Pro SKIN PREVENTION RECOMMENDATION: 1. Pressure redistribution support surface as appropriate 2. Elevate heels 3. Remove boots/TEDS every shift and reapply 4. Head of bed 30 degrees as tolerated 5. Assess nutrition and hydration 6. Manage moisture 7. Avoid the use of containment devices while in bed 8. Use absorptive products on surfaces limit layers of linens on bed 9. Turn and reposition every 1-2 hours in bed and every 1 hour in chair as tolerated 10. Weight shifts every 15 minutes while up in chair 11. Offloading with pillows or device to keep heels elevated off bed 12. Monitor skin at least every shift 13. Inspect under medical devices twice a day WOUND TREATMENT RECOMMENDATIONS: CLEANSE BUTTOCK WITH SOAP AND WATER. APPLY HYDRAGUARD FOR PROTECTION.
--- NOTE | 2018-09-06 14:40 | NUR ---
Occupational Therapy evaluation completed on 5 with full eval to follow. PRecautions include fall risk; bed alarm, NWB LLE w cast, impaired balance, safety and carryover of NWB LLE. Patient is high complexity level 53744 via chart review, testing and evaluation. Recommend OT per pOC and SNF to enable return home when able. Thank you for this referral. Brenda Gordon OTR/L
--- NOTE | 2018-09-06 15:45 | NUR ---
PHYSICAL THERAPY Patient presented to therapy at 11:42 pm in supine with head of bed elevated and no verbalized complaints. Patient agrees to therapy session. Patient was identified by name liss MADRIGAL. Patient in NWB ON L LE. Patient performed supine to sitting at EOB with MAX A X 1. Patient performed sitting at EOB with CGA X 1. Patient performed STS transfer to W/W with MOD A X 1 with patient inconsistently following wt. bearing precautions. Patient is constantly verbal cued to bend L KNEE to keep weight off of L LE DURING STANDING AND TRANSFERS. Patient transferred SPT to bedside chair with W/W and MOD A X 1. Patient again , inconsistent in maintaining wt. bearing status due to lack of strength and some confusion, it seemed. Patient transferred to bedside chair with MOD A X 1. Patient performed seated bilateral LE ther ex in all planes of movement x 15 reps each in all planes of movement for strengthening the LEs in order to improve patient's functional mobility. Patient was transferred later back to supine in bed by Nurses and color control operator. Patient was left in sitting position with call light within reach, chair alarm activated, and LEs elevated. Patient was 1:1 with this MONOTYPE SETTER for 24 minutes total. JEFF CORRIGAN MONOTYPE SETTER
--- NOTE | 2018-09-06 15:56 | NUR ---
Dr. Lynn notified of wound care recommendations.
[2018-09-06 16:00] VITALS: BP 136/60
--- NOTE | 2018-09-06 16:04 | NUR ---
PHYSICAL THERAPY Patient presented to therapy this afternoon in supine with head of bed elevated. Patient had no complaints. Patient was identified by name liss MADRIGAL. Patient performed transfer supine to sitting at EOB with MAX A X 1. Patient sat at EOB with SBA and performed LE ther ex in all planes of movement for strengthening the LEs IN ORDER TO IMPROVE PATIENT'S FUNCTIONAL MOBILITY. Patient transferred back to supine in bed with MAX A X 1. Patient was left in supine with head of bed elevated, call light within reach, and bed alarm activated. Patient was 1:1 with this DIAGRAMMER for 15 minutes total. JEFF CORRIGAN DIAGRAMMER
[2018-09-06 20:00] VITALS: BP 143/56
--- NOTE | 2018-09-06 20:31 | NUR ---
24 HR chart check completed.
--- NOTE | 2018-09-06 21:00 | NUR ---
RESTING IN BED. RESPIRATIONS EASY. LUNGS DIMINISHED, CLEAR. PULSE OPX 100% RA. RLE EDEMA NOTED. BULKY CAST INTACT TO LLE, PATIENT DENIES PAIN. IV FLUIDS INFUSING PER ORDER. CALL LIGHT WITHIN REACH. NO VOICED COMPLAINTS. BED ALARM MAINTAINED
[2018-09-07] VITALS: BP 156/75
--- NOTE | 2018-09-07 | NUR ---
PATIENT INCONT MULTIPLE TIMES OF LOOSE STOOL. PATIENT AND LINENS CHANGED. MARY-AREA BECOMING RED AND PATIENT C/O "BURNING". DR WILKINS CONTACTED AND INFORMED, JESSICA HAWK REQUESTED
--- NOTE | 2018-09-07 00:35 | NUR ---
ANXIOUS, RESTLESS. RESTORIL PROVIDED TO ASSIST WITH SLEEP. WILL MONITOR FOR EFFECTIVENESS
--- NOTE | 2018-09-07 02:00 | NUR ---
MEDS EFFECTIVE, SLEEPING
[2018-09-07 06:41] LABS: CHLORIDE 113 mmol/L (98-107); CREATININE 0.55 mg/dL (0.55-1.02); POTASSIUM 3.2 mmol/L (3.5-5.1); SODIUM 142 mmol/L (136-145)
[2018-09-07 06:42] LABS: BUN 11 mg/dl (7-24)
[2018-09-07 07:11] LABS: HEMATOCRIT 29.7 % (37.0-47.0); HEMOGLOBIN 9.7 g/dl (12.0-16.0); MEAN CELL VOLUME 86.6 fl (81.0-99.0); MEAN CORPUSCULAR HGB 28.3 pg (27.0-31.0); MEAN CORPUSCULAR HGB CONC 32.7 g/dl (33.0-37.0); MEAN PLATELET VOLUME 9.5 fl (9.6-12.3); PLATELET COUNT AUTOMATED 232 10*3/uL (130-400); RED BLOOD COUNT 3.43 10*6/uL (4.10-5.10); RED CELL DISTRI WIDTH 14.9 % (0-14.5); WHITE BLOOD COUNT 5.4 10*3/uL (4.8-10.8)
[2018-09-07 07:35] LABS: BURR CELLS FEW; PLATELET SUFFICIENCY NORMAL (NORMAL); POLYCHROMASIA SLIGHT; TOTAL CELLS COUNTED 100 #CELLS
[2018-09-07 07:36] LABS: TOXIC GRANULATION SLIGHT
[2018-09-07 09:30] VITALS: BP 121/63
--- NOTE | 2018-09-07 10:25 | NUR ---
OT NOTE Pt was seen this A.M. 1:1 for 15 minute OT session. Upon arrival pt was supine in bed, pt identified by name and . Pt had complaints of being up all night and also feeling nauseated. Pt transferred supine to sit EOB with maxA X 2 with education on use of bed rails for increased I in bed mobility. Pt completed multiple sit to stand transfers from bed level for increased I in functional transfers. Pt completed them with modA X 2 and use of w/w for UE support. Challenged pt's static standing tolerance needed for increased I in self care tasks and functional transfers, pt was able to tolerate aprox 25 sec, 37 sec, and 22 seconds before sitting due to fatigue and nausea. Pt transferred sit to supine with maxA X 2 where she was left with call light in hand, tray table in place, and bed alarm on for safety. RIGO Pimentel/Geovanny
--- NOTE | 2018-09-07 10:33 | NUR ---
GRANDDAUGHTER SHRADDHA CALLED IN ASKING ABOUT GRANDMOTHER AND IF IT WOULD BE POSSIBLE TO GET HER TO [facility]STEAD OF [facility] BECAUSE SHE NEEDS MORE ASSISTANCE THEN THEY CAN DO AT REHAB SUIT[facility]. 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 CALLED SHRADDHA BACK AND INFORMED HER.
--- NOTE | 2018-09-07 10:37 | NUR ---
PATIENT C/O FEELING NAUSEATED, MEDICATED WITH PRN IV ZOFRAN. WILL MONITOR PATIENT FOR MEDICATION EFFECTIVENESS. CALL LIGHT WITHIN REACH.
[2018-09-07] MEDS ORDERED: CIPRO500 MG PO (10:49)
[2018-09-07] MEDS ORDERED: HYDROCODONE-AC1 EAC1 PO (10:49)
[2018-09-07] MEDS ORDERED: TRAMADOL HCL50 MG PO (10:49)
--- NOTE | 2018-09-07 11:06 | NUR ---
Although patient came in from rehab [facility], patient requires too much care to return there. She will be going to the [facility]. Clinicals and therapy was faxed to the [facility] for precert. Waiting on auth.
[2018-09-07 11:45] VITALS: BP 110/60
--- NOTE | 2018-09-07 11:47 | NUR ---
PHYSICAL THERAPY Patient presented to therapy in supine with head of bed elevated and report of being up most of the night feeling nauseous. Patient says she is feeling better now. Patient agrees to therapy session. Patient was identified by name and . Patient is NWB on L LE. Patient performed supine to sitting at EOB transfer with MAX A X 2. Patient transferred STS transfer with MOD A X 2. Patient stood at W/W 3 Xs with MIN A X 2 to CGA X 2 for < 30 seconds each time. Patient has very difficult time maintaining NWB STATUS on L LE. Patient is not strong enough to maintain the NWB STATUS on L LE. Patient performed sitting bilateral LE ther ex in all planes of movement for strengthening the LEs in order to improve patient's functional mobility. Patient was transferred back to supine MAX A X 2. Patient was left in supine position with head of bed elevated, call light within reach, and bed alarm activated. Patient was 1:1 with this PRORATION CLERK 21 minutes total. JEFF CORRIGAN PRORATION CLERK
--- NOTE | 2018-09-07 13:45 | NUR ---
Patient has received auth for [facility]. Patient is discharged and OK to go.
--- NOTE | 2018-09-07 13:55 | NUR ---
Patient is discharged to [facility], transportation scheduled for 2;30 with [facility], nursing and left message for Grand daughter because daughter is sick.
--- NOTE | 2018-09-07 14:25 | NUR ---
Discharge instructions reviewed with patient/family. Patient receptive and verbalizes understanding. Follow-up care arranged. Written instructions given to patient/family. CRISTIAN PEÑA
--- NOTE | 2018-09-07 14:40 | NUR ---
PATIENT TRANSPORTED OFF FLOOR AT THIS TIME IN CARE OF AMBULANCE.
--- NOTE | 2018-09-07 15:04 | NUR ---
NURSE TO NURSE REPORT CALLED TO [facility].
--- NOTE | 2018-09-08 07:32 | NUR ---
PHYSICAL THERAPY CO-SIGN I approve of the Phyical Therapy notes written above. CECILIA PATTERSON PT
[2018-11-01] MEDS ORDERED: CALCIUM + VITA1 EAC2 PO (15:00)
[2018-11-01] MEDS ORDERED: MILK OF MA400 MG/5 M PO (15:03)
[2018-11-01] MEDS ORDERED: NYSTOP60 GM T (15:05)
[2018-11-01] MEDS ORDERED: TYLENOL325 M3 PO (15:06)
[2018-11-03] MEDS ORDERED: XARELTO10 MG PO (14:00)
[2018-11-03] MEDS ORDERED: DOXYCYCLINE100 MG PO (14:01)
== END 2018-09-07 14:51 | disposition other institution (70) | DRG 689 ==
LOC: ED 20:47 → EDHOLD 23:24 → 5E 23:24
PROVIDERS: Emergency Medicine Emergency Medical Services; Internal Medicine; Physician Assistant; ADMIT Internal Medicine
DX: N30.01 Acute cystitis with hematuria (principal); E43 Unspecified severe protein-calorie malnutrition; E78.5 Hyperlipidemia, unspecified; E03.9 Hypothyroidism, unspecified; J44.9 Chronic obstructive pulmonary disease, unspecified; E55.9 Vitamin D deficiency, unspecified; E80.6 Other disorders of bilirubin metabolism; R26.2 Difficulty in walking, not elsewhere classified; Z88.0 Allergy status to penicillin; Z88.2 Allergy status to sulfonamides; Z88.8 Allergy status to other drugs, medicaments and biological substances; Z88.6 Allergy status to analgesic agent; Z91.041 Radiographic dye allergy status; Z90.710 Acquired absence of both cervix and uterus; Z90.49 Acquired absence of other specified parts of digestive tract; Z90.11 Acquired absence of right breast and nipple; Z83.3 Family history of diabetes mellitus; Z82.49 Family history of ischemic heart disease and other diseases of the circulatory system; Z80.9 Family history of malignant neoplasm, unspecified; I25.2 Old myocardial infarction; Z68.30 Body mass index [BMI] 30.0-30.9, adult